=== PATIENT | female | born 1980 | race Caucasian/White ===

== ENCOUNTER 2020-06-22 09:04 | Outpatient (CLI) | payer MEDICARE, MEDICAID, SELFPAY | END 2020-06-22 09:05 | disposition home or self-care (01) | LOC: ANHBWCAUD 09:10 | DX: H91.93 Unspecified hearing loss, bilateral (principal) | CPT/HCPCS: 92557; 92567 ==

== ENCOUNTER 2023-07-24 08:47 | Outpatient (CLI) | payer MEDICARE, MEDICAID, SELFPAY | END 2023-07-24 08:48 | disposition home or self-care (01) | LOC: ANHBWCAUD 08:48 | DX: H90.3 Sensorineural hearing loss, bilateral (principal) | CPT/HCPCS: 92557; 92567 ==